=== PATIENT | male | born 1945 | race Caucasian/White ===

== ENCOUNTER 2022-04-16 12:30 | Outpatient (CLI) | payer OTHER | END 2022-04-16 12:31 | disposition home or self-care (01) | LOC: PET 12:30 | PROVIDERS: ATTEND Psychiatry & Neurology Neurology | DX: R41.3 Other amnesia (principal) | CPT/HCPCS: 78803; A9552 ==

== ENCOUNTER 2022-08-25 19:17 | Inpatient (IN) | payer MEDICARE ==
[2022-08-25] MEDS ORDERED: Vancomycin 1 GM/200 ML (FROZEN) BAG ONE (20:51)
[2022-08-25] MEDS ORDERED: Cefepime 2 GM VIAL ONE ×2 (20:51→20:53)
[2022-08-25] MEDS ORDERED: Aspirin Chewable 81 MG TAB ONE (20:51)
[2022-08-25 21:27] LABS: CKMB 3.2 ng/mL (0-6.6)
[2022-08-25] MEDS ORDERED: Ondansetron PF 4 MG/2 ML Vial ONE (22:59)
[2022-08-26 00:40] VITALS: BMI 34.4
[2022-08-26] MEDS ORDERED: Acetaminophen 325 MG TAB PO PRN (00:47)
[2022-08-26] MEDS ORDERED: Bisacodyl 5 MG TAB PO PRN (00:47)
[2022-08-26] MEDS ORDERED: Senokot S 8.6-50 MG TAB PO PRN (00:47)
[2022-08-26] MEDS ORDERED: Ondansetron ODT 4 MG TAB PO PRN (00:47)
[2022-08-26 00:50] LABS: Critical Call Chem Troponin I RESULT DECREASING; Troponin I 0.689 ng/mL (< 0.028)
[2022-08-26] MEDS ORDERED: Polyethylene Glycol 3350 17 GM Packet PO PRN (00:50)
[2022-08-26] MEDS ORDERED: Dextrose 5% in Water 1,000 ML IV PRN (00:56)
[2022-08-26] MEDS ORDERED: Dextrose 50% Abboject 50 ML SYRINGE SLOW IVP PRN (00:56)
[2022-08-26 01:25] LABS: #Eosinphils 0.3 thou/uL (0.0-0.7); #Lymphocytes 2.5 thou/uL (1.20-3.40); #Monocytes 0.6 thou/uL (0.11-0.59); #Neutrophils 4.1 thou/uL (1.40-6.50); %Basophils 0.5 % (0.0-1.0); %Eosinophils 4.1 % (0.0-10.0); %Lymphocytes 33.4 % (21.0-51.0); %Monocytes 8.1 % (0.0-10.0); Hemoglobin 9.4 g/dL (14.0-18.0); Mean Corpuscular HGB CONC 33.3 g/dL (32.0-36.0); Mean Platelet Volume 9.9 fL (7.4-10.4); Platelet Count 234 10x3/uL (130-400); RBC Distribution Width 15.2 % (11.5-14.5); Red Blood Cell (RBC) Count 3.23 mill/uL (4.70-6.10); White Blood Cell (WBC) Count 7.6 10x3/uL (4.8-10.8)
[2022-08-26] MEDS ORDERED: Vancomycin 1 GM in Premix Bag 1 BAG IVPB SCH (01:30)
[2022-08-26] MEDS ORDERED: Vancomycin 1 GM/200 ML (FROZEN) BAG ONE (01:37)
[2022-08-26 01:45] LABS: ALT (SGPT) 9 U/L (8-55); AST (SGOT) 13 U/L (5-34); Albumin 2.6 g/dL (3.4-4.8); Alkaline Phosphatase 53 U/L (40-110); Anion Gap 8 mmol/L (10-20); BUN (Urea Nitrogen) 47 mg/dL (8.4-25.7); Bilirubin, Total 0.3 mg/dL (0.2-1.2); Calc. Creatinine Clearance 38 mL/min (70-130); Calcium 8.5 mg/dL (7.8-10.44); Carbon Dioxide 21 mmol/L (23-31); Chloride 116 mmol/L (98-107); Estimated GFR 26; Globulin 3.4 g/dL (2.4-3.5); Glucose 180 mg/dL (83-110); Potassium 4.1 mmol/L (3.5-5.1); Sodium 141 mmol/L (136-145)
[2022-08-26 02:12] LABS: SARS-CoV-2 NAA Rapid Test Not Detected (NotDetected)
[2022-08-26 04:22] LABS: Bacteria/HPF None Seen HPF (None Seen); Bilirubin Negative (Negative); Blood, Urine Trace (Negative); Clarity Clear (Clear); Glucose, Urine (Dipstick) 300 mg/dL (Negative); Ketone, Urine Negative (Negative); Leukocyte Negative Leu/uL (Negative); Nitrite Negative (Negative); Protein, Urine (Dipstick) 200 mg/dL (Neg-Trace); Specific Gravity, Urine 1.019 (1.002-1.036); Squamous Epithelial 0-3 HPF (0-3); Urobilinogen Normal mg/dL (Less than 2); WBC/HPF 0-3 HPF (0-3); pH, Urine 5.5 (5.0-9.0)
[2022-08-26 05:36] LABS: Critical Call Chem Troponin I RESULT DECREASING; Troponin I 0.595 ng/mL (< 0.028)
[2022-08-26] MEDS ORDERED: Famotidine 20 MG TAB PO SCH (09:00)
[2022-08-26] MEDS ORDERED: Furosemide 20 MG TAB PO SCH (09:00)
[2022-08-26] MEDS ORDERED: Vancomycin 1.5 GRAM/300 ML BAG IVPB SCH (09:00)
[2022-08-26] MEDS ORDERED: Insulin Glargine 30 UNITS/0.3 ML VIAL SC SCH ×2 (09:00→09:30)
[2022-08-26] MEDS ORDERED: Aspirin 81 mg Enteric Coated Tablet ONE (09:25)
[2022-08-26] MEDS ORDERED: Cholecalciferol 1,000 UNITS (25 MCG) TAB ONE (09:26)
[2022-08-26] MEDS: hydrALAZINE 25 MG TAB PO SCH ×3 (10:10→21:18)
[2022-08-26] MEDS: Cholecalciferol 1,000 UNITS (25 MCG) TAB PO SCH (10:11)
[2022-08-26] MEDS: Aspirin Chewable 81 MG TAB PO SCH (10:11)
[2022-08-26] MEDS: Tamsulosin HCl 0.4 MG CAP PO SCH (10:12)
[2022-08-26] MEDS: Allopurinol 100 MG TAB PO SCH (10:12)
[2022-08-26] MEDS: Fenofibrate 48 MG TAB PO SCH (10:13)
[2022-08-26] MEDS: Atorvastatin Calcium 40 MG TAB PO SCH (10:15)
[2022-08-26 10:18] LABS: INR-International Normal Ratio 2.7; Prothrombin Time 29.5 sec (12.0-14.7)
[2022-08-26] MEDS: CO Q-10 CAPSULE 100 MG PO SCH (10:46)
[2022-08-26 12:14] LABS: Creatinine, Urine 134.44 mg/dL (63-166); Protein, Urine Random Quant 14 mg/dL (1-14); Sodium, Urine Less than 20 mmol/L (Not Available); Urea Nitrogen, Random Urine 634 mg/dl
[2022-08-26] MEDS: Sodium Bicarbonate Tab 325 MG TAB PO SCH ×2 (14:07→21:18)
[2022-08-26] MEDS ORDERED: cefTRIAXone\\ROCEPHIN 1 GM in Sodium Chloride 0.9% 100 ML IVPB SCH (16:00)
[2022-08-26] MEDS: Fluticasone Propionate Nasal Spray 16 gm Bottle NASAL SCH (17:52)
[2022-08-26] MEDS: Warfarin Sodium 5 MG TAB PO SCH (17:52)
[2022-08-26] MEDS ORDERED: Furosemide 40 MG/4 ML VIAL SLOW IVP SCH (18:30)
[2022-08-26] MEDS: Terazosin HCl 1 MG CAP PO SCH (21:18)
[2022-08-26] MEDS ORDERED: Vancomycin Dose by Levels Sliding Scale (Wt > 99) FS SCH (23:59)
[2022-08-27 00:01] LABS: Vancomycin, Random 13.2 ug/mL (See Comment)
[2022-08-27] MEDS ORDERED: Vancomycin 1 GM in Premix Bag 1 BAG IVPB SCH (00:15)
[2022-08-27] MEDS: Furosemide 40 MG/4 ML VIAL SLOW IVP SCH ×2 (05:53→17:34)
[2022-08-27] MEDS ORDERED: Insulin Glargine 30 UNITS/0.3 ML VIAL SC SCH (09:00)
[2022-08-27 09:06] LABS: #Eosinphils 0.4 thou/uL (0.0-0.7); #Lymphocytes 1.5 thou/uL (1.20-3.40); #Monocytes 0.5 thou/uL (0.11-0.59); #Neutrophils 5.9 thou/uL (1.40-6.50); %Basophils 0.6 % (0.0-1.0); %Lymphocytes 18.3 % (21.0-51.0); %Monocytes 6.1 % (0.0-10.0); Hemoglobin 9.6 g/dL (14.0-18.0); Mean Corpuscular HGB CONC 31.8 g/dL (32.0-36.0); Mean Corpuscular Hemoglobin 27.6 pg (27.0-31.0); Mean Corpuscular Volume 86.8 fl (78.0-98.0); Mean Platelet Volume 9.9 fL (7.4-10.4); Platelet Count 285 10x3/uL (130-400); Red Blood Cell (RBC) Count 3.47 mill/uL (4.70-6.10); White Blood Cell (WBC) Count 8.4 10x3/uL (4.8-10.8)
[2022-08-27 09:15] LABS: Anion Gap 11 mmol/L (10-20); BUN (Urea Nitrogen) 39 mg/dL (8.4-25.7); Calc. Creatinine Clearance 42 mL/min (70-130); Carbon Dioxide 26 mmol/L (23-31); Chloride 105 mmol/L (98-107); Estimated GFR 29; Glucose 234 mg/dL (83-110); Potassium 4.7 mmol/L (3.5-5.1); Sodium 137 mmol/L (136-145)
[2022-08-27] MEDS: CO Q-10 CAPSULE 100 MG PO SCH (10:28)
[2022-08-27] MEDS: hydrALAZINE 25 MG TAB PO SCH ×3 (10:29→21:50)
[2022-08-27] MEDS: Tamsulosin HCl 0.4 MG CAP PO SCH (10:29)
[2022-08-27] MEDS: Famotidine 20 MG TAB PO SCH (10:30)
[2022-08-27] MEDS: Cholecalciferol 1,000 UNITS (25 MCG) TAB PO SCH (10:31)
[2022-08-27] MEDS: Fenofibrate 48 MG TAB PO SCH (10:31)
[2022-08-27] MEDS: Sodium Bicarbonate Tab 325 MG TAB PO SCH ×3 (10:32→23:24)
[2022-08-27] MEDS: Atorvastatin Calcium 40 MG TAB PO SCH (10:32)
[2022-08-27] MEDS: Aspirin Chewable 81 MG TAB PO SCH (10:32)
[2022-08-27] MEDS: Allopurinol 100 MG TAB PO SCH (10:32)
[2022-08-27] MEDS: HumaLOG 300 UNITS/3 ML VIAL SC PRN ×2 (10:37→18:03)
[2022-08-27] MEDS: Fluticasone Propionate Nasal Spray 16 gm Bottle NASAL SCH (11:16)
[2022-08-27 13:14] LABS: INR-International Normal Ratio 2.2; Prothrombin Time 25.3 sec (12.0-14.7)
[2022-08-27] MEDS ORDERED: Piperacillin/Tazobactam 3.375 GM in Sodium Chloride 0.9% 100 ML IVPB SCH ×2 (15:00→15:30)
[2022-08-27] MEDS: Warfarin Sodium 5 MG TAB PO SCH (18:06)
[2022-08-27] MEDS: Piperacillin/Tazobactam 3.375 GM in Sodium Chloride 0.9% 100 ML IVPB SCH (21:50)
[2022-08-27] MEDS: Terazosin HCl 1 MG CAP PO SCH (21:51)
[2022-08-28] MEDS: Melatonin 3 MG TAB PO PRN ×2 (02:21→21:04)
[2022-08-28] MEDS: Furosemide 40 MG/4 ML VIAL SLOW IVP SCH ×3 (07:50→18:04)
[2022-08-28] MEDS: Piperacillin/Tazobactam 3.375 GM in Sodium Chloride 0.9% 100 ML IVPB SCH ×4 (07:50→21:02)
[2022-08-28 08:47] LABS: #Eosinphils 0.5 thou/uL (0.0-0.7); #Lymphocytes 1.6 thou/uL (1.20-3.40); #Monocytes 0.4 thou/uL (0.11-0.59); #Neutrophils 5.3 thou/uL (1.40-6.50); %Basophils 0.6 % (0.0-1.0); %Lymphocytes 20.6 % (21.0-51.0); %Monocytes 5.1 % (0.0-10.0); %Neutrophils 67.7 % (42.0-75.0); Hemoglobin 9.7 g/dL (14.0-18.0); Mean Corpuscular HGB CONC 32.6 g/dL (32.0-36.0); Mean Corpuscular Hemoglobin 28.3 pg (27.0-31.0); Mean Corpuscular Volume 86.7 fl (78.0-98.0); Mean Platelet Volume 9.9 fL (7.4-10.4); Platelet Count 271 10x3/uL (130-400); Red Blood Cell (RBC) Count 3.43 mill/uL (4.70-6.10); White Blood Cell (WBC) Count 7.9 10x3/uL (4.8-10.8)
[2022-08-28 08:53] LABS: Anion Gap 12 mmol/L (10-20); BUN (Urea Nitrogen) 47 mg/dL (8.4-25.7); Calc. Creatinine Clearance 40 mL/min (70-130); Calcium 8.9 mg/dL (7.8-10.44); Carbon Dioxide 24 mmol/L (23-31); Chloride 104 mmol/L (98-107); Estimated GFR 27; Glucose 290 mg/dL (83-110); Potassium 4.3 mmol/L (3.5-5.1); Sodium 136 mmol/L (136-145)
[2022-08-28 08:55] LABS: INR-International Normal Ratio 2.1; Prothrombin Time 24.1 sec (12.0-14.7)
[2022-08-28] MEDS ORDERED: Lisinopril 5 MG TAB PO SCH (09:00)
[2022-08-28] MEDS: Aspirin Chewable 81 MG TAB PO SCH (09:42)
[2022-08-28] MEDS: Atorvastatin Calcium 40 MG TAB PO SCH (09:42)
[2022-08-28] MEDS: Cholecalciferol 1,000 UNITS (25 MCG) TAB PO SCH (09:43)
[2022-08-28] MEDS: Famotidine 20 MG TAB PO SCH (09:43)
[2022-08-28] MEDS: Allopurinol 100 MG TAB PO SCH (09:43)
[2022-08-28] MEDS: Fenofibrate 48 MG TAB PO SCH (09:44)
[2022-08-28] MEDS: Sodium Bicarbonate Tab 325 MG TAB PO SCH ×3 (09:45→21:03)
[2022-08-28] MEDS: hydrALAZINE 25 MG TAB PO SCH ×3 (09:45→21:03)
[2022-08-28] MEDS: Tamsulosin HCl 0.4 MG CAP PO SCH (09:45)
[2022-08-28] MEDS: CO Q-10 CAPSULE 100 MG PO SCH (09:46)
[2022-08-28] MEDS: Fluticasone Propionate Nasal Spray 16 gm Bottle NASAL SCH (09:59)
[2022-08-28] MEDS: HumaLOG 300 UNITS/3 ML VIAL SC PRN (12:17)
[2022-08-28] MEDS: Warfarin Sodium 5 MG TAB PO SCH (18:03)
[2022-08-28] MEDS ORDERED: Insulin Glargine 30 UNITS/0.3 ML VIAL SC SCH (21:00)
[2022-08-28] MEDS: Terazosin HCl 1 MG CAP PO SCH (21:02)
[2022-08-28] MEDS: Donepezil HCl 5 MG TAB PO SCH (21:03)
[2022-08-28] MEDS: Lorazepam 0.5 MG TAB PO PRN (21:04)
[2022-08-28] MEDS: Insulin Glargine 30 UNITS/0.3 ML VIAL SC SCH (21:09)
[2022-08-29] MEDS: Piperacillin/Tazobactam 3.375 GM in Sodium Chloride 0.9% 100 ML IVPB SCH ×3 (04:10→20:21)
[2022-08-29 04:44] LABS: Anion Gap 16 mmol/L (10-20); BUN (Urea Nitrogen) 53 mg/dL (8.4-25.7); Calc. Creatinine Clearance 35 mL/min (70-130); Calcium 8.6 mg/dL (7.8-10.44); Carbon Dioxide 20 mmol/L (23-31); Chloride 106 mmol/L (98-107); Estimated GFR 23; Glucose 352 mg/dL (83-110); Potassium 5.1 mmol/L (3.5-5.1); Sodium 137 mmol/L (136-145)
[2022-08-29 06:22] LABS: #Eosinphils 0.4 thou/uL (0.0-0.7); #Lymphocytes 1.6 thou/uL (1.20-3.40); #Monocytes 0.5 thou/uL (0.11-0.59); #Neutrophils 5.3 thou/uL (1.40-6.50); %Basophils 0.5 % (0.0-1.0); %Eosinophils 5.6 % (0.0-10.0); %Monocytes 6.4 % (0.0-10.0); %Neutrophils 67.6 % (42.0-75.0); Hemoglobin 9.2 g/dL (14.0-18.0); Mean Corpuscular HGB CONC 33.3 g/dL (32.0-36.0); Mean Corpuscular Hemoglobin 28.5 pg (27.0-31.0); Mean Corpuscular Volume 85.6 fl (78.0-98.0); Mean Platelet Volume 9.9 fL (7.4-10.4); Platelet Count 245 10x3/uL (130-400); Red Blood Cell (RBC) Count 3.22 mill/uL (4.70-6.10); White Blood Cell (WBC) Count 7.8 10x3/uL (4.8-10.8)
[2022-08-29 06:30] LABS: INR-International Normal Ratio 2.1; Prothrombin Time 24.2 sec (12.0-14.7)
[2022-08-29 06:40] LABS: Albumin 2.9 g/dL (3.4-4.8)
[2022-08-29] MEDS ORDERED: Lisinopril 20 MG TAB PO SCH (09:00)
[2022-08-29] MEDS ORDERED: Fish Oil 1,000 MG CAP PO SCH (09:00)
[2022-08-29] MEDS ORDERED: Isosorbide Dinitrate 20 MG TAB PO SCH (09:30)
[2022-08-29] MEDS: Atorvastatin Calcium 40 MG TAB PO SCH (10:02)
[2022-08-29] MEDS: Allopurinol 100 MG TAB PO SCH (10:02)
[2022-08-29] MEDS: Aspirin Chewable 81 MG TAB PO SCH (10:02)
[2022-08-29] MEDS: Cholecalciferol 1,000 UNITS (25 MCG) TAB PO SCH (10:03)
[2022-08-29] MEDS: Fenofibrate 48 MG TAB PO SCH (10:03)
[2022-08-29] MEDS: Famotidine 20 MG TAB PO SCH (10:03)
[2022-08-29] MEDS: hydrALAZINE 25 MG TAB PO SCH ×3 (10:04→20:22)
[2022-08-29] MEDS: Fluticasone Propionate Nasal Spray 16 gm Bottle NASAL SCH (10:04)
[2022-08-29] MEDS: Insulin Glargine 30 UNITS/0.3 ML VIAL SC SCH ×2 (10:04→20:24)
[2022-08-29] MEDS: Tamsulosin HCl 0.4 MG CAP PO SCH (10:05)
[2022-08-29] MEDS: CO Q-10 CAPSULE 100 MG PO SCH ×2 (10:06→10:30)
[2022-08-29] MEDS: Lorazepam 0.5 MG TAB PO PRN (10:08)
[2022-08-29] MEDS: Sodium Bicarbonate Tab 325 MG TAB PO SCH ×3 (12:05→20:22)
[2022-08-29] MEDS: HumaLOG 300 UNITS/3 ML VIAL SC PRN ×3 (12:12→20:28)
[2022-08-29] MEDS: Warfarin Sodium 5 MG TAB PO SCH (16:52)
[2022-08-29] MEDS: Isosorbide Dinitrate 20 MG TAB PO SCH ×2 (16:52→20:23)
[2022-08-29] MEDS ORDERED: Epoetin (ESRD) 10,000 UNITS/ML VIAL SC SCH (18:00)
[2022-08-29] MEDS ORDERED: Iron, Sodium Ferric Gluconate 250 MG in Sodium Chloride 0.9% 250 ML 250 ML IVPB SCH (19:00)
[2022-08-29] MEDS: Donepezil HCl 5 MG TAB PO SCH (20:23)
[2022-08-29] MEDS ORDERED: EPOETIN ALFA-EPBX (ESRD) 10,000 UNIT/ML VIAL SC SCH (20:30)
[2022-08-30] MEDS: Lorazepam 0.5 MG TAB PO PRN (01:25)
[2022-08-30] MEDS: Melatonin 3 MG TAB PO PRN (01:25)
[2022-08-30] MEDS: Piperacillin/Tazobactam 3.375 GM in Sodium Chloride 0.9% 100 ML IVPB SCH ×2 (03:40→11:46)
[2022-08-30 04:32] LABS: #Eosinphils 0.4 thou/uL (0.0-0.7); #Lymphocytes 1.6 thou/uL (1.20-3.40); #Monocytes 0.5 thou/uL (0.11-0.59); #Neutrophils 6.1 thou/uL (1.40-6.50); %Basophils 0.5 % (0.0-1.0); %Eosinophils 4.6 % (0.0-10.0); %Lymphocytes 18.4 % (21.0-51.0); %Monocytes 5.6 % (0.0-10.0); %Neutrophils 70.9 % (42.0-75.0); Hemoglobin 8.7 g/dL (14.0-18.0); Mean Corpuscular HGB CONC 33.2 g/dL (32.0-36.0); Mean Corpuscular Hemoglobin 28.7 pg (27.0-31.0); Mean Corpuscular Volume 86.3 fl (78.0-98.0); Mean Platelet Volume 10.1 fL (7.4-10.4); Platelet Count 250 10x3/uL (130-400); RBC Distribution Width 15.5 % (11.5-14.5); Red Blood Cell (RBC) Count 3.03 mill/uL (4.70-6.10); White Blood Cell (WBC) Count 8.6 10x3/uL (4.8-10.8)
[2022-08-30 04:47] LABS: INR-International Normal Ratio 2.4; Prothrombin Time 27.2 sec (12.0-14.7)
[2022-08-30 05:03] LABS: Albumin 2.9 g/dL (3.4-4.8); Anion Gap 12 mmol/L (10-20); BUN (Urea Nitrogen) 53 mg/dL (8.4-25.7); BUN/Creatinine Ratio 21.12; Calc. Creatinine Clearance 38 mL/min (70-130); Calcium 8.3 mg/dL (7.8-10.44); Carbon Dioxide 26 mmol/L (23-31); Chloride 108 mmol/L (98-107); Estimated GFR 26; Glucose 97 mg/dL (83-110); Phosphorus 3.1 mg/dL (2.3-4.7); Potassium 3.6 mmol/L (3.5-5.1); Sodium 142 mmol/L (136-145)
[2022-08-30] MEDS ORDERED: Furosemide 40 MG TAB PO SCH (07:30)
[2022-08-30] MEDS: Insulin Glargine 30 UNITS/0.3 ML VIAL SC SCH (09:41)
[2022-08-30] MEDS: Sodium Bicarbonate Tab 325 MG TAB PO SCH ×2 (09:42→15:16)
[2022-08-30] MEDS: hydrALAZINE 25 MG TAB PO SCH ×2 (09:42→15:16)
[2022-08-30] MEDS: Fenofibrate 48 MG TAB PO SCH (09:42)
[2022-08-30] MEDS: CO Q-10 CAPSULE 100 MG PO SCH (09:42)
[2022-08-30] MEDS: Famotidine 20 MG TAB PO SCH (09:43)
[2022-08-30] MEDS: Allopurinol 100 MG TAB PO SCH (09:43)
[2022-08-30] MEDS: Aspirin Chewable 81 MG TAB PO SCH (09:43)
[2022-08-30] MEDS: Cholecalciferol 1,000 UNITS (25 MCG) TAB PO SCH (09:43)
[2022-08-30] MEDS: Atorvastatin Calcium 40 MG TAB PO SCH (09:43)
[2022-08-30] MEDS: Tamsulosin HCl 0.4 MG CAP PO SCH (09:44)
[2022-08-30] MEDS: Isosorbide Dinitrate 20 MG TAB PO SCH ×2 (09:44→15:16)
[2022-08-30] MEDS: Fluticasone Propionate Nasal Spray 16 gm Bottle NASAL SCH (09:44)
[2022-08-30] MEDS: HumaLOG 300 UNITS/3 ML VIAL SC PRN (11:46)
[2022-08-30] MEDS ORDERED: diphenhydrAMINE 25 MG CAP PO PRN (11:59)
[2022-08-30 16:36] VITALS: BP 116/57; TEMP 97.8
== END 2022-08-30 17:04 | disposition home or self-care (01) | DRG 280 ==
LOC: ERS 19:17 → ERHOLD 23:39 → 2NO 23:49 → OBSVTOIN 08-26 00:47 → 2NO 08-26 15:57
PROVIDERS: ADMIT Student in an Organized Health Care Education/Training Program; ATTEND Hospitalist
DX: I13.0 Hypertensive heart and chronic kidney disease with heart failure and stage 1 through stage 4 chronic kidney disease, or unspecified chronic kidney disease (principal); I21.4 Non-ST elevation (NSTEMI) myocardial infarction; I50.33 Acute on chronic diastolic (congestive) heart failure; L03.116 Cellulitis of left lower limb; N17.9 Acute kidney failure, unspecified; E87.20 Acidosis, unspecified; I48.21 Permanent atrial fibrillation; E78.5 Hyperlipidemia, unspecified; I25.10 Atherosclerotic heart disease of native coronary artery without angina pectoris; N40.0 Benign prostatic hyperplasia without lower urinary tract symptoms; G47.33 Obstructive sleep apnea (adult) (pediatric); E11.22 Type 2 diabetes mellitus with diabetic chronic kidney disease; D63.1 Anemia in chronic kidney disease; E66.01 Morbid (severe) obesity due to excess calories; M10.9 Gout, unspecified; I35.0 Nonrheumatic aortic (valve) stenosis; N18.32 Chronic kidney disease, stage 3b; Z88.5 Allergy status to narcotic agent; Z79.899 Other long term (current) drug therapy; Z79.82 Long term (current) use of aspirin; Z79.4 Long term (current) use of insulin; Z68.34 Body mass index [BMI] 34.0-34.9, adult; Z86.73 Personal history of transient ischemic attack (TIA), and cerebral infarction without residual deficits; Z86.718 Personal history of other venous thrombosis and embolism
CPT/HCPCS: 36415; 36416; 71045; 76770; 80048; 80053; 80069; 80202; 81003; 81015; 82040; 82550; 82553; 82570; 82728; 83540; 83550; 83880; 84156; 84300; 84484; 84540; 85025; 85610; 87040; 93005; 93306; 96361; 96365; 96372; 96375; 97139; G0378; J0692; J0696; J1650; J1815; J1940; J2405; J2543; J2916; J3370-JW; J3490; J7050; Q4081; Q5105; U0002

== ENCOUNTER 2022-12-23 12:32 | Outpatient (CLI) | payer OTHER | END 2022-12-23 12:33 | disposition home or self-care (01) | LOC: ULT 12:32 | PROVIDERS: ATTEND Internal Medicine Nephrology | DX: N17.9 Acute kidney failure, unspecified (principal); N18.4 Chronic kidney disease, stage 4 (severe); R33.9 Retention of urine, unspecified; N32.0 Bladder-neck obstruction | CPT/HCPCS: 76770 ==

== ENCOUNTER 2023-03-03 15:46 | Emergency (ER) | payer OTHER ==
[2023-03-03] MEDS ORDERED: Acetaminophen 500 MG TAB ONE (16:01)
[2023-03-03 16:34] LABS: #Monocytes 0.9 thou/uL (0.11-0.59); %Basophils 0.3 % (0.0-1.0); %Eosinophils 0.1 % (0.0-10.0); %Lymphocytes 8.6 % (21.0-51.0); %Monocytes 12.3 % (0.0-10.0); Hematocrit 38.1 % (42.0-52.0); Hemoglobin 12.2 g/dL (14.0-18.0); Mean Corpuscular Hemoglobin 29.6 pg (27.0-31.0); Mean Corpuscular Volume 92.5 fl (78.0-98.0); Mean Platelet Volume 12.7 fL (7.4-10.4); Platelet Count 219 10x3/uL (130-400); RBC Distribution Width 15.4 % (11.5-14.5); Red Blood Cell (RBC) Count 4.12 mill/uL (4.70-6.10); White Blood Cell (WBC) Count 7.7 10x3/uL (4.8-10.8)
[2023-03-03 17:00] LABS: ALT (SGPT) 10 U/L (8-55); AST (SGOT) 15 U/L (5-34); Albumin 3.7 g/dL (3.4-4.8); Alkaline Phosphatase 54 U/L (40-110); Anion Gap 16 mmol/L (10-20); BUN (Urea Nitrogen) 66 mg/dL (8.4-25.7); Bilirubin, Total 0.5 mg/dL (0.2-1.2); Calc. Creatinine Clearance 0 mL/min (70-130); Calcium 9.3 mg/dL (7.8-10.44); Carbon Dioxide 21 mmol/L (23-31); Chloride 112 mmol/L (98-107); Estimated GFR 22; Globulin 2.8 g/dL (2.4-3.5); Glucose 233 mg/dL (83-110); Potassium 4.2 mmol/L (3.5-5.1); Protein, Total 6.5 g/dL (5.8-8.1); Sodium 145 mmol/L (136-145)
[2023-03-03 17:05] LABS: SARS-CoV-2 NAA Rapid Test DETECTED (NotDetected)
[2023-03-03 18:03] LABS: Bacteria/HPF None Seen HPF (None Seen); Bilirubin Negative (Negative); Blood, Urine 2+ (Negative); CAUTI Indications for Culture Alt mental st,lethar; Clarity Clear (Clear); Glucose, Urine (Dipstick) Greater than 1000 mg/dL (Negative); Ketone, Urine Trace mg/dL (Negative); Leukocyte Negative Leu/uL (Negative); Nitrite Negative (Negative); Protein, Urine (Dipstick) 200 mg/dL (Neg-Trace); Specific Gravity, Urine 1.024 (1.002-1.036); Squamous Epithelial None Seen HPF (0-3); Urobilinogen Normal mg/dL (Less than 2); WBC/HPF 0-3 HPF (0-3); pH, Urine 5.5 (5.0-9.0)
[2023-03-03 18:08] LABS: Urine Culture Reflex No No
== END 2023-03-03 21:07 | disposition home or self-care (01) ==
LOC: ERS 15:46
DX: U07.1 COVID-19 (principal); E11.9 Type 2 diabetes mellitus without complications; K21.9 Gastro-esophageal reflux disease without esophagitis; E78.5 Hyperlipidemia, unspecified; I10 Essential (primary) hypertension; Z87.891 Personal history of nicotine dependence
CPT/HCPCS: 36415; 71045; 80053; 81001; 85025; 86140; 87040; 87086; 93005; U0002

== ENCOUNTER 2023-03-04 11:20 | Inpatient (IN) | payer MEDICARE, OTHER ==
[2023-03-04] MEDS ORDERED: Dexamethasone 4 mg/ml Vial ONE (12:03)
[2023-03-04] MEDS ORDERED: Albuterol 200 PUFF INH ONE (12:06)
[2023-03-04 12:32] LABS: INR-International Normal Ratio 1.3; PTT 35.9 sec (22.9-36.1); Prothrombin Time 16.2 sec (12.0-14.7)
[2023-03-04 12:33] LABS: D-Dimer Test 1.62 *mcg/mL (0.27-0.43)
[2023-03-04 12:36] LABS: #Monocytes 0.8 thou/uL (0.11-0.59); #Neutrophils 8.9 thou/uL (1.40-6.50); %Basophils 0.3 % (0.0-1.0); %Lymphocytes 6.7 % (21.0-51.0); %Monocytes 7.9 % (0.0-10.0); %Neutrophils 84.6 % (42.0-75.0); Hematocrit 43.1 % (42.0-52.0); Hemoglobin 13.5 g/dL (14.0-18.0); Mean Corpuscular HGB CONC 31.3 g/dL (32.0-36.0); Mean Corpuscular Hemoglobin 29.5 pg (27.0-31.0); Mean Corpuscular Volume 94.3 fl (78.0-98.0); Mean Platelet Volume 12.8 fL (7.4-10.4); Platelet Count 213 10x3/uL (130-400); RBC Distribution Width 15.5 % (11.5-14.5); Red Blood Cell (RBC) Count 4.57 mill/uL (4.70-6.10); White Blood Cell (WBC) Count 10.5 10x3/uL (4.8-10.8)
[2023-03-04 12:47] LABS: Troponin I 0.181 ng/mL (< 0.028)
[2023-03-04 12:55] LABS: Bilirubin Negative (Negative); Blood, Urine 2+ (Negative); CAUTI Indications for Culture Dysuria,urgency,freq; Clarity Clear (Clear); Glucose, Urine (Dipstick) Greater than 1000 mg/dL (Negative); Ketone, Urine 10 mg/dL (Negative); Leukocyte Negative Leu/uL (Negative); Nitrite Negative (Negative); Protein, Urine (Dipstick) 300 mg/dL (Neg-Trace); Specific Gravity, Urine 1.025 (1.002-1.036); Squamous Epithelial 0-3 HPF (0-3); Urobilinogen Normal mg/dL (Less than 2); WBC/HPF 0-3 HPF (0-3); Yeast-Budding 1+ HPF (None Seen); pH, Urine 5.5 (5.0-9.0)
[2023-03-04 12:57] LABS: Bacteria/HPF 1+ HPF (None Seen)
[2023-03-04 12:58] LABS: Urine Culture Reflex No No
[2023-03-04 13:30] LABS: ALT (SGPT) 11 U/L (8-55); AST (SGOT) 19 U/L (5-34); Albumin 3.7 g/dL (3.4-4.8); Alkaline Phosphatase 53 U/L (40-110); Anion Gap 19 mmol/L (10-20); BUN (Urea Nitrogen) 71 mg/dL (8.4-25.7); Bilirubin, Total 0.5 mg/dL (0.2-1.2); CK (CPK) 205 U/L (30-200); Calc. Creatinine Clearance 0 mL/min (70-130); Calcium 9.4 mg/dL (7.8-10.44); Carbon Dioxide 20 mmol/L (23-31); Chloride 112 mmol/L (98-107); Estimated GFR 21; Globulin 3.4 g/dL (2.4-3.5); Glucose 327 mg/dL (83-110); Potassium 4.2 mmol/L (3.5-5.1); Protein, Total 7.1 g/dL (5.8-8.1); Sodium 147 mmol/L (136-145)
[2023-03-04] MEDS ORDERED: Aspirin Chewable 81 MG TAB ONE (13:33)
[2023-03-04 13:39] LABS: CRP (Inflammatory) 14.92 mg/dL (= or < 0.5); Magnesium 2.4 mg/dL (1.6-2.6)
[2023-03-04] MEDS ORDERED: Insulin Regular 300 UNITS/3 ML VIAL ONE (13:46)
[2023-03-04 15:00] LABS: Actual Bicarbonate (HCO3v) 19.4 mEq/L (22-28); Base Excess -6.3 mEq/L (-2.0 to +3.0); Calcium, Ionized (venous) 1.15 mmol/L (1.16-1.32); Chloride (VBG) 112 mmol/L (98-106); Hematocrit-VBG 41 % (42.0-52.0); Hemoglobin (Hb) 13.8 g/dL (12.6-17.4); Potassium (VBG) 4.46 mmol/L (3.70-5.30); Sodium 147.2 mmol/L (133-146); pH (venous) 7.312 (7.32-7.43)
[2023-03-04] MEDS ORDERED: Senokot S 8.6-50 MG TAB PO PRN (17:12)
[2023-03-04] MEDS ORDERED: Acetaminophen 325 MG TAB PO PRN (17:12)
[2023-03-04] MEDS ORDERED: Albuterol 200 PUFF (6.7GM INHALER) INH PRN (17:15)
[2023-03-04] MEDS ORDERED: Acetaminophen 650 MG Suppository PR PRN (17:15)
[2023-03-04] MEDS ORDERED: Benzonatate 100 MG CAP PO PRN (17:15)
[2023-03-04] MEDS ORDERED: Dextrose 5% in Water 1,000 ML IV PRN (17:21)
[2023-03-04] MEDS ORDERED: Dextrose 50% Abboject 50 ML SYRINGE SLOW IVP PRN (17:21)
[2023-03-04] MEDS ORDERED: Glucagon 1 MG/ML KIT IM PRN (17:21)
[2023-03-04] MEDS ORDERED: REMDESIVIR 200 MG in Sodium Chloride 0.9% 250 ML 210 ML IV SCH (18:30)
[2023-03-04] MEDS ORDERED: Communication Order-Pharmacy FS SCH (18:45)
[2023-03-04 21:24] VITALS: BMI 32.0
[2023-03-04] MEDS: Atorvastatin Calcium 40 MG TAB PO SCH (21:48)
[2023-03-04] MEDS: Terazosin HCl 1 MG CAP PO SCH (21:48)
[2023-03-04] MEDS: Famotidine 20 MG TAB PO SCH (21:49)
[2023-03-04 21:53] LABS: Troponin I 0.128 ng/mL (< 0.028)
[2023-03-05 00:18] LABS: Troponin I 0.121 ng/mL (< 0.028)
[2023-03-05] MEDS: HumaLOG 300 UNITS/3 ML VIAL SC PRN ×5 (01:48→22:10)
[2023-03-05 05:02] LABS: #Monocytes 0.8 thou/uL (0.11-0.59); #Neutrophils 10.3 thou/uL (1.40-6.50); %Basophils 0.2 % (0.0-1.0); %Lymphocytes 7.7 % (21.0-51.0); %Monocytes 6.5 % (0.0-10.0); %Neutrophils 84.9 % (42.0-75.0); Hematocrit 37.6 % (42.0-52.0); Hemoglobin 11.8 g/dL (14.0-18.0); Mean Corpuscular HGB CONC 31.4 g/dL (32.0-36.0); Mean Corpuscular Hemoglobin 29.5 pg (27.0-31.0); Mean Platelet Volume 12.9 fL (7.4-10.4); Platelet Count 179 10x3/uL (130-400); RBC Distribution Width 15.2 % (11.5-14.5); White Blood Cell (WBC) Count 12.1 10x3/uL (4.8-10.8)
[2023-03-05 05:33] LABS: ALT (SGPT) 9 U/L (8-55); AST (SGOT) 18 U/L (5-34); Albumin 3.1 g/dL (3.4-4.8); Alkaline Phosphatase 45 U/L (40-110); Anion Gap 17 mmol/L (10-20); BUN (Urea Nitrogen) 80 mg/dL (8.4-25.7); Bilirubin, Total 0.3 mg/dL (0.2-1.2); Calc. Creatinine Clearance 31 mL/min (70-130); Calcium 8.6 mg/dL (7.8-10.44); Carbon Dioxide 17 mmol/L (23-31); Chloride 111 mmol/L (98-107); Estimated GFR 24; Globulin 2.9 g/dL (2.4-3.5); Glucose 366 mg/dL (83-110); Potassium 4.2 mmol/L (3.5-5.1); Sodium 141 mmol/L (136-145)
[2023-03-05] MEDS ORDERED: Rivaroxaban 10 MG TAB PO SCH (09:00)
[2023-03-05] MEDS ORDERED: Albuterol 200 PUFF (6.7GM INHALER) INH PRN (09:19)
[2023-03-05] MEDS: Zinc Sulfate 220 MG CAP PO SCH (09:27)
[2023-03-05] MEDS: Famotidine 20 MG TAB PO SCH (09:27)
[2023-03-05] MEDS: Ascorbic Acid 500 mg Chewable Tablet PO SCH (09:27)
[2023-03-05] MEDS: Cholecalciferol (Vitamin D3) 400 UNITS TAB PO SCH (09:29)
[2023-03-05] MEDS: Aspirin Chewable 81 MG TAB PO SCH (09:29)
[2023-03-05] MEDS ORDERED: Empagliflozin 10 MG TAB PO SCH (11:45)
[2023-03-05] MEDS: Dexamethasone 10 MG/ML VIAL SLOW IVP SCH (13:15)
[2023-03-05] MEDS: REMDESIVIR 100 MG in Sodium Chloride 0.9% 250 ML 230 ML IV SCH (17:43)
[2023-03-05] MEDS: Sodium Bicarbonate Tab 325 MG TAB PO SCH ×2 (17:43→22:10)
[2023-03-05] MEDS ORDERED: Amlodipine 5 MG TAB PO SCH (19:15)
[2023-03-05] MEDS: Terazosin HCl 1 MG CAP PO SCH (22:10)
[2023-03-05] MEDS: Donepezil HCl 10 MG TAB PO SCH (22:11)
[2023-03-05] MEDS: Insulin Glargine 30 UNITS/0.3 ML VIAL SC SCH (22:11)
[2023-03-05] MEDS: Atorvastatin Calcium 40 MG TAB PO SCH (22:11)
[2023-03-05] MEDS: HumaLOG 300 UNITS/3 ML VIAL SC SCH (22:13)
[2023-03-06 05:16] LABS: #Monocytes 0.5 thou/uL (0.11-0.59); #Neutrophils 9.7 thou/uL (1.40-6.50); %Basophils 0.1 % (0.0-1.0); %Monocytes 4.2 % (0.0-10.0); Hematocrit 35.5 % (42.0-52.0); Hemoglobin 11.6 g/dL (14.0-18.0); Mean Corpuscular HGB CONC 32.7 g/dL (32.0-36.0); Mean Corpuscular Hemoglobin 29.4 pg (27.0-31.0); Mean Corpuscular Volume 89.9 fl (78.0-98.0); Mean Platelet Volume 12.7 fL (7.4-10.4); Platelet Count 176 10x3/uL (130-400); RBC Distribution Width 14.7 % (11.5-14.5); Red Blood Cell (RBC) Count 3.95 mill/uL (4.70-6.10); White Blood Cell (WBC) Count 10.9 10x3/uL (4.8-10.8)
[2023-03-06 05:43] LABS: ALT (SGPT) 19 U/L (8-55); AST (SGOT) 29 U/L (5-34); Albumin 3.1 g/dL (3.4-4.8); Alkaline Phosphatase 58 U/L (40-110); Anion Gap 16 mmol/L (10-20); BUN (Urea Nitrogen) 90 mg/dL (8.4-25.7); Bilirubin, Total 0.3 mg/dL (0.2-1.2); CRP (Inflammatory) 11.75 mg/dL (= or < 0.5); Calc. Creatinine Clearance 30 mL/min (70-130); Carbon Dioxide 19 mmol/L (23-31); Chloride 107 mmol/L (98-107); Estimated GFR 23; Globulin 3.2 g/dL (2.4-3.5); Potassium 4.1 mmol/L (3.5-5.1); Protein, Total 6.3 g/dL (5.8-8.1); Sodium 138 mmol/L (136-145)
[2023-03-06 05:46] LABS: Glucose 419 mg/dL (83-110)
[2023-03-06] MEDS: HumaLOG 300 UNITS/3 ML VIAL SC SCH ×4 (06:27→21:09)
[2023-03-06] MEDS: HumaLOG 300 UNITS/3 ML VIAL SC PRN ×4 (06:28→16:36)
[2023-03-06] MEDS: Cholecalciferol (Vitamin D3) 400 UNITS TAB PO SCH (08:53)
[2023-03-06] MEDS: Aspirin Chewable 81 MG TAB PO SCH (08:53)
[2023-03-06] MEDS: Fenofibrate 48 MG TAB PO SCH (08:53)
[2023-03-06] MEDS: Sodium Bicarbonate Tab 325 MG TAB PO SCH ×3 (08:53→21:08)
[2023-03-06] MEDS: Famotidine 20 MG TAB PO SCH (08:54)
[2023-03-06] MEDS: Rivaroxaban 10 MG TAB PO SCH (08:55)
[2023-03-06] MEDS: Zinc Sulfate 220 MG CAP PO SCH (08:55)
[2023-03-06] MEDS: Insulin Glargine 30 UNITS/0.3 ML VIAL SC SCH ×3 (08:56→21:09)
[2023-03-06] MEDS: CO Q-10 CAPSULE 100 MG PO SCH (08:56)
[2023-03-06] MEDS: Ascorbic Acid 500 mg Chewable Tablet PO SCH (08:56)
[2023-03-06] MEDS: Ferrous Sulfate 325 MG TAB PO SCH ×2 (08:56→18:16)
[2023-03-06] MEDS ORDERED: Amlodipine 5 MG TAB PO SCH (09:00)
[2023-03-06] MEDS: Dexamethasone 10 MG/ML VIAL SLOW IVP SCH (13:11)
[2023-03-06] MEDS: Fluticasone Propionate Nasal Spray 16 gm Bottle NASAL SCH (17:43)
[2023-03-06] MEDS: REMDESIVIR 100 MG in Sodium Chloride 0.9% 250 ML 230 ML IV SCH (18:30)
[2023-03-06] MEDS: Amlodipine 5 MG TAB PO SCH (21:08)
[2023-03-06] MEDS: Donepezil HCl 10 MG TAB PO SCH (21:08)
[2023-03-06] MEDS: Atorvastatin Calcium 40 MG TAB PO SCH (21:09)
[2023-03-06] MEDS: Terazosin HCl 1 MG CAP PO SCH (21:13)
[2023-03-07] MEDS: HumaLOG 300 UNITS/3 ML VIAL SC PRN (05:34)
[2023-03-07 07:25] LABS: ALT (SGPT) 16 U/L (8-55); AST (SGOT) 24 U/L (5-34); Alkaline Phosphatase 51 U/L (40-110); Anion Gap 14 mmol/L (10-20); BUN (Urea Nitrogen) 90 mg/dL (8.4-25.7); Bilirubin, Total 0.3 mg/dL (0.2-1.2); CRP (Inflammatory) 5.63 mg/dL (= or < 0.5); Calc. Creatinine Clearance 35 mL/min (70-130); Carbon Dioxide 18 mmol/L (23-31); Chloride 111 mmol/L (98-107); Estimated GFR 27; Globulin 2.7 g/dL (2.4-3.5); Glucose 300 mg/dL (83-110); Potassium 4.2 mmol/L (3.5-5.1); Protein, Total 5.7 g/dL (5.8-8.1); Sodium 139 mmol/L (136-145)
[2023-03-07] MEDS: HumaLOG 300 UNITS/3 ML VIAL SC SCH ×4 (08:22→21:20)
[2023-03-07] MEDS: Ascorbic Acid 500 mg Chewable Tablet PO SCH (08:23)
[2023-03-07] MEDS: Aspirin Chewable 81 MG TAB PO SCH (08:23)
[2023-03-07] MEDS: Amlodipine 5 MG TAB PO SCH ×2 (08:23→21:22)
[2023-03-07] MEDS: Cholecalciferol (Vitamin D3) 400 UNITS TAB PO SCH (08:23)
[2023-03-07] MEDS: Ferrous Sulfate 325 MG TAB PO SCH ×2 (08:23→17:49)
[2023-03-07] MEDS: Dexamethasone 10 MG/ML VIAL SLOW IVP SCH (08:23)
[2023-03-07] MEDS: Famotidine 20 MG TAB PO SCH (08:23)
[2023-03-07] MEDS: Fenofibrate 48 MG TAB PO SCH (08:24)
[2023-03-07] MEDS: Insulin Glargine 30 UNITS/0.3 ML VIAL SC SCH ×2 (08:24→21:19)
[2023-03-07] MEDS: Fluticasone Propionate Nasal Spray 16 gm Bottle NASAL SCH (08:24)
[2023-03-07] MEDS: Rivaroxaban 10 MG TAB PO SCH (08:25)
[2023-03-07] MEDS: Zinc Sulfate 220 MG CAP PO SCH (08:25)
[2023-03-07] MEDS: CO Q-10 CAPSULE 100 MG PO SCH (08:25)
[2023-03-07] MEDS: Sodium Bicarbonate Tab 325 MG TAB PO SCH ×3 (08:25→21:19)
[2023-03-07] MEDS: REMDESIVIR 100 MG in Sodium Chloride 0.9% 250 ML 230 ML IV SCH (17:50)
[2023-03-07] MEDS: Donepezil HCl 10 MG TAB PO SCH (21:19)
[2023-03-07] MEDS: Atorvastatin Calcium 40 MG TAB PO SCH (21:19)
[2023-03-07] MEDS: Terazosin HCl 1 MG CAP PO SCH (21:21)
[2023-03-08] MEDS: HumaLOG 300 UNITS/3 ML VIAL SC PRN ×2 (00:35→06:33)
[2023-03-08] MEDS: HumaLOG 300 UNITS/3 ML VIAL SC SCH ×2 (06:33→12:50)
[2023-03-08 07:47] LABS: ALT (SGPT) 21 U/L (8-55); AST (SGOT) 24 U/L (5-34); Albumin 2.9 g/dL (3.4-4.8); Alkaline Phosphatase 50 U/L (40-110); Anion Gap 11 mmol/L (10-20); BUN (Urea Nitrogen) 87 mg/dL (8.4-25.7); Bilirubin, Total 0.3 mg/dL (0.2-1.2); Calc. Creatinine Clearance 34 mL/min (70-130); Calcium 8.7 mg/dL (7.8-10.44); Carbon Dioxide 24 mmol/L (23-31); Chloride 111 mmol/L (98-107); Estimated GFR 27; Globulin 2.8 g/dL (2.4-3.5); Glucose 235 mg/dL (83-110); Potassium 4.3 mmol/L (3.5-5.1); Protein, Total 5.7 g/dL (5.8-8.1); Sodium 142 mmol/L (136-145)
[2023-03-08] MEDS ORDERED: Rivaroxaban 10 MG TAB PO SCH (08:00)
[2023-03-08] MEDS: Aspirin Chewable 81 MG TAB PO SCH (08:22)
[2023-03-08] MEDS: Ferrous Sulfate 325 MG TAB PO SCH (08:22)
[2023-03-08] MEDS: Cholecalciferol (Vitamin D3) 400 UNITS TAB PO SCH (08:22)
[2023-03-08] MEDS: Ascorbic Acid 500 mg Chewable Tablet PO SCH (08:22)
[2023-03-08] MEDS: Amlodipine 5 MG TAB PO SCH (08:22)
[2023-03-08] MEDS: Insulin Glargine 30 UNITS/0.3 ML VIAL SC SCH (08:23)
[2023-03-08] MEDS: Famotidine 20 MG TAB PO SCH (08:23)
[2023-03-08] MEDS: Fenofibrate 48 MG TAB PO SCH (08:23)
[2023-03-08] MEDS: Dexamethasone 10 MG/ML VIAL SLOW IVP SCH (08:23)
[2023-03-08] MEDS: Fluticasone Propionate Nasal Spray 16 gm Bottle NASAL SCH (08:24)
[2023-03-08] MEDS: Zinc Sulfate 220 MG CAP PO SCH (08:24)
[2023-03-08] MEDS: Sodium Bicarbonate Tab 325 MG TAB PO SCH ×2 (08:24→15:39)
[2023-03-08] MEDS: CO Q-10 CAPSULE 100 MG PO SCH (08:24)
[2023-03-08] MEDS ORDERED: REMDESIVIR 100 MG in Sodium Chloride 0.9% 250 ML 230 ML IV SCH (12:00)
[2023-03-08 15:36] VITALS: BP 163/83; TEMP 97.6
== END 2023-03-08 15:49 | disposition home or self-care (01) | DRG 177 ==
LOC: ERS 11:20 → ERHOLD 16:01 → 2NO 20:11 → T4-A 03-06 17:21
PROVIDERS: ADMIT Family Medicine; ATTEND Family Medicine
PROC: XW033E5 Introduction of Remdesivir Anti-infective into Peripheral Vein, Percutaneous Approach, New Technology Group 5 (ICD-10-PCS; principal; 2023-03-04)
PROC: 0T9B70Z Drainage of Bladder with Drainage Device, Via Natural or Artificial Opening (ICD-10-PCS; 2023-03-04)
PROC: C23GYZZ Positron Emission Tomographic (PET) Imaging of Myocardium using Other Radionuclide (ICD-10-PCS; 2023-03-04)
PROC: 3E0333Z Introduction of Anti-inflammatory into Peripheral Vein, Percutaneous Approach (ICD-10-PCS; 2023-03-05)
DX: U07.1 COVID-19 (principal); J96.01 Acute respiratory failure with hypoxia; I13.0 Hypertensive heart and chronic kidney disease with heart failure and stage 1 through stage 4 chronic kidney disease, or unspecified chronic kidney disease; I50.32 Chronic diastolic (congestive) heart failure; N18.4 Chronic kidney disease, stage 4 (severe); E87.21 Acute metabolic acidosis; N17.9 Acute kidney failure, unspecified; I24.8 Other forms of acute ischemic heart disease; G47.33 Obstructive sleep apnea (adult) (pediatric); Z79.4 Long term (current) use of insulin; K21.9 Gastro-esophageal reflux disease without esophagitis; N40.0 Benign prostatic hyperplasia without lower urinary tract symptoms; E78.5 Hyperlipidemia, unspecified; Z86.73 Personal history of transient ischemic attack (TIA), and cerebral infarction without residual deficits; Z86.718 Personal history of other venous thrombosis and embolism; Z98.890 Other specified postprocedural states; Z90.89 Acquired absence of other organs; Z87.891 Personal history of nicotine dependence; Z95.5 Presence of coronary angioplasty implant and graft; F41.9 Anxiety disorder, unspecified; E11.22 Type 2 diabetes mellitus with diabetic chronic kidney disease; I48.0 Paroxysmal atrial fibrillation; Z88.6 Allergy status to analgesic agent; Z79.899 Other long term (current) drug therapy; Z79.82 Long term (current) use of aspirin; I50.9 Heart failure, unspecified; F03.90 Unspecified dementia, unspecified severity, without behavioral disturbance, psychotic disturbance, mood disturbance, and anxiety; E86.0 Dehydration; E11.65 Type 2 diabetes mellitus with hyperglycemia; E11.21 Type 2 diabetes mellitus with diabetic nephropathy; Z79.01 Long term (current) use of anticoagulants; D63.1 Anemia in chronic kidney disease; E86.9 Volume depletion, unspecified
CPT/HCPCS: 36415; 36416; 51701; 71045; 78451; 80053; 81001; 82010; 82550; 82805; 83605; 83735; 83880; 84484; 85025; 85379; 85610; 85730; 86140; 87040; 87086; 93005; 94760; 96361; 96374; A9540; J0248; J1100; J1650; J1815; J7050; U0002